=== PATIENT | male | born 1945 | race Caucasian/White ===

== ENCOUNTER 2019-04-07 15:57 | Outpatient (CLI) | payer MEDICARE, SELFPAY ==
--- NOTE | 2019-04-07 14:00 | DI.RAD_ITS ---
EXAM: XR SHOULDER RT COMPLETE 2+V INDICATION: Right shoulder pain x 2 days M25.511. COMPARISON: No exams were available for comparison TECHNIQUE: 2D digital imaging was performed. FINDINGS: Five views were obtained. There is mild marginal osteophyte formation of the glenoid. There are sof t tissue calcifications seen inferior to the glenoid in the internal rotation view, which are project ed anteriorly on the axillary view and these may lie in the subscapularis tendon. Mild degenerative changes of the AC joint noted. IMPRESSION: Mild DJD. 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
== END 2019-04-07 16:17 ==
PROVIDERS: PCP Emergency Medicine; Visit Provider Nurse Practitioner Family
DX: M25.511 Pain in right shoulder (principal); M19.011 Primary osteoarthritis, right shoulder
CPT/HCPCS: 73030